=== PATIENT | female | born 1990 | race African-American/Black ===

== ENCOUNTER 2020-06-27 16:19 | Inpatient (IN) | payer OTHER ==
--- NOTE | 2020-06-27 19:21 | HP ---
CIWA Score Nausea/Vomitin-Mild Nausea/No Vomiting Muscle Tremors: 1-None Visible, but [place] Anxiety: 0-No Anxiety, at Ease Agitation: 1-Slight > Activity Paroxysmal Sweats: No Perspiration Orientation: 0-Oriented Tacttile Disturbances: 0-None Auditory Disturbances: 0-None Visual Disturbances: 0-None Headache: 0-None Present CIWA-Ar Total Score: 3 - Admission Criteria OASAS Guidelines: Admission for Medically Managed Detox: Requires at least one of the followin. CIWA greater than 12 2. Seizures within the past 24 hours 3. Delirium tremens within the past 24 hours 4. Hallucinations within the past 24 hours 5. Acute intervention needed for co occurring medical disorder 6. Acute intervention needed for co occurring psychiatric disorder 7. Severe withdrawal that cannot be handled at a lower level of care (continued vomiting, continued diarrhea, abnormal vital signs) requiring intravenous medication and/or fluids 8. Admission ROS [facility] - HPI Allergies/Adverse Reactions: Allergies Allergy/AdvReac Type Severity Reaction Status Date / Time No Known Allergies Allergy Verified 06/27/20 19:16 History of Present Illness: 29 y.o. female requesting detox form alcohol use , claims 1 pint /day since 2 years ago , most recent detox "a few weeks ago " in the [place] , latest use today 10 am, reports tremors if not drinking , denies seizures or blackouts . Current JAYLA 0.107 denies illicits PMHx/PSHX : denies Psych : denies allergies : denies meds : none LMP 06/07/2020 tobacco - denies Exam Limitations: Intoxication - Review of Systems Constitutional: Loss of Appetite EENT: reports: No Symptoms Reported Respiratory: reports: No Symptoms reported Cardiac: reports: No Symptoms Reported GI: reports: Poor Appetite : reports: No Symptoms Reported Musculoskeletal: reports: No Symptoms Reported Integumentary: reports: No Symptoms Reported Neuro: reports: No Symptoms reported Endocrine: reports: No Symptoms Reported Hematology: reports: No Symptoms Reported Psychiatric: reports: Orientated x3, Agitated, other (tearful at times) Patient History - Smoking Cessation Smoking history: Never smoked - Substances abused Alcohol Substance route: Oral Frequency: Daily Amount used: 1 pint Age of first use: 28 Date of last use: 06/27/20 Admission Physical Exam [facility] - Physical General Appearance: Yes: Mild Distress, Intoxicated HEENTM: Yes: EOMI, Hearing grossly Normal, Normocephalic, Normal Voice Respiratory: Yes: Chest Non-Tender, Lungs Clear, Normal Breath Sounds, No Respiratory Distress, No Accessory Muscle Use Neck: Yes: No masses,lesions,Nodules, Trachea in good position Cardiology: Yes: Regular Rhythm, Regular Rate, S1, S2, Tachycardia Abdominal: Yes: Non Tender, Soft Musculoskeletal: Yes: Gait Steady Extremities: Yes: Normal Capillary Refill, Normal Range of Motion, Non-Tender, Tremors Neurological: Yes: Fully Oriented, Alert, Motor Strength 5/5, Depressed Affect Integumentary: Yes: Warm - Diagnostic (1) Alcohol intoxication Current Visit: Yes Status: Acute Qualifiers: Complication of substance-induced condition: uncomplicated Qualified Code(s): F10.920 - Alcohol use, unspecified with intoxication, uncomplicated Inpatient Rehab Admission - Rehab Decision to Admit Inpatient rehab admission?: No
[2020-06-27] MEDS ORDERED: METHOCARBAMOL 500 MG TABLET PO PRN (19:24)
[2020-06-27] MEDS ORDERED: BISMUTH SUBSALICYLATE 524 MG/30 ML UD PO PRN (19:24)
[2020-06-27] MEDS ORDERED: MAGNESIUM HYDROX 2400MG/30ML ORAL SUSPENSION 30 ML CUP PO PRN (19:24)
[2020-06-27] MEDS ORDERED: MENTHOL/PHENOL 1 EACH UD MM PRN (19:24)
[2020-06-27] MEDS ORDERED: IBUPROFEN 400 MG TABLET (FP) PO PRN (19:24)
[2020-06-27] MEDS ORDERED: ACETAMINOPHEN 325 MG TABLET (FP) PO PRN ×2 (19:24)
[2020-06-27] MEDS ORDERED: ONDANSETRON *ODT* 4 MG TABLET SL ONE (19:24)
[2020-06-27] MEDS ORDERED: MAG HYDROX/AL HYDROX/SIMETH 30 ML UNIT-DOSE CUP PO PRN (19:24)
[2020-06-27] MEDS ORDERED: MAGNESIUM CITRATE 300 ML BOTTLE PO PRN (19:24)
[2020-06-27] MEDS ORDERED: chlordiazePOXIDE HCL 10 MG CAPSULE PO PRN (19:25)
[2020-06-27 19:50] VITALS: BMI 20.2
[2020-06-27] MEDS: chlordiazePOXIDE HCL 25 MG CAPSULE PO SCH (21:50)
[2020-06-27] MEDS: THIAMINE HCL 100 MG TABLET (FP) PO SCH (21:50)
[2020-06-27] MEDS: MELATONIN 5 MG TABLETS PO PRN (21:51)
[2020-06-28] MEDS: chlordiazePOXIDE HCL 25 MG CAPSULE PO SCH ×3 (05:48→22:27)
[2020-06-28] MEDS: PRENATAL VITAMINS W/ FOLIC ACID TABLET (FP) PO SCH (09:35)
--- NOTE | 2020-06-28 09:51 | PN ---
S CIWA - CIWA Score Nausea/Vomitin-Mild Nausea/No Vomiting Muscle Tremors: 3 Anxiety: 3 Agitation: 1-Slight > Activity Paroxysmal Sweats: No Perspiration Orientation: 0-Oriented Tacttile Disturbances: 1-Very Mild Itch/Numbness Auditory Disturbances: 0-None Visual Disturbances: 1-Very Mild Sensitivity Headache: 2-Mild CIWA-Ar Total Score: 12 BHS Progress Note (SOAP) Subjective: 29 years old female was admitted on 06/27/20 for alcohol withdrawal sx management treating with librium detox regiment feels tired resting in bed limited conversation with staff bmi 20.3 provide ensure supplement with meals Objective: 06/28/20 09:50 Vital Signs - 24 hr 06/27/20 06/27/20 06/28/20 19:43 20:33 06:28 Temperature 97.6 F 98.1 F 97.1 F L Pulse Rate 83 82 53 L Respiratory 18 16 18 Rate Blood Pressure 139/96 118/83 123/83 O2 Sat by Pulse 100 96 Oximetry (%) Laboratory Tests 06/27/20 19:50 POC Urine HCG, Qual Negative 06/28/20 09:50 lab pending Assessment: 06/28/20 09:50 alcohol withdrawal 06/28/20 09:51 underweight Plan: librium regiment nutrition supplement
[2020-06-28 13:06] LABS: HEMATOCRIT 36.4 % (32.4-45.2); HEMOGLOBIN 12.3 GM/dL (10.7-15.3); MCH 34.9 pg (25.7-33.7); MCHC 33.8 g/dl (32.0-36.0); MEAN CELL VOLUME 103.3 fl (80-96); MEAN PLT VOLUME 9.3 fl (7.5-11.1); PLATELET COUNT 175 K/MM3 (134-434); RBC 3.52 M/mm3 (3.60-5.2); RDW 13.7 % (11.6-15.6); WHITE BLOOD COUNT 3.4 K/mm3 (4.0-10.0)
[2020-06-28 13:12] LABS: ALBUMIN 4.6 g/dl (3.4-5.0); BLOOD UREA NITROGEN 8.1 mg/dL (7-18); CALCIUM 9.9 mg/dL (8.5-10.1); CREATININE 0.8 mg/dL (0.55-1.3); POTASSIUM 3.8 mmol/L (3.5-5.1)
[2020-06-28 13:14] LABS: BILIRUBIN,TOTAL 1.5 mg/dL (0.2-1); TOT PROT 9.1 g/dl (6.4-8.2)
[2020-06-28] MEDS: MELATONIN 5 MG TABLETS PO PRN (22:28)
[2020-06-28] MEDS: THIAMINE HCL 100 MG TABLET (FP) PO SCH (22:28)
[2020-06-29] MEDS ORDERED: chlordiazePOXIDE 5 MG CAPSULE PO SCH (05:00)
[2020-06-29] MEDS: PRENATAL VITAMINS W/ FOLIC ACID TABLET (FP) PO SCH (09:02)
[2020-06-29] MEDS ORDERED: LORazepam 1 MG TABLET PO PRN (10:43)
--- NOTE | 2020-06-29 10:43 | PN ---
S CIWA - CIWA Score Nausea/Vomitin-Mild Nausea/No Vomiting Muscle Tremors: 2 Anxiety: 3 Agitation: 1-Slight > Activity Paroxysmal Sweats: No Perspiration Orientation: 0-Oriented Tacttile Disturbances: 0-None Auditory Disturbances: 0-None Visual Disturbances: 1-Very Mild Sensitivity Headache: 1-Very Mild CIWA-Ar Total Score: 9 S Progress Note (SOAP) Subjective: 29 years old female was admitted on 06/27/20 for alcohol withdrawal sx management treating with librium detox regiment slept better last night less tremor mild anxiety continue ensure nutritional supplement Objective: 06/29/20 10:40 Vital Signs - 24 hr 06/28/20 06/28/20 06/28/20 13:07 16:43 20:36 Temperature 97.1 F L 97.1 F L 97.1 F L Pulse Rate 97 H 78 96 H Respiratory 18 16 16 Rate Blood Pressure 114/81 102/79 129/87 O2 Sat by Pulse 100 100 96 Oximetry (%) 06/29/20 06/29/20 06:07 09:31 Temperature 98.8 F 98.1 F Pulse Rate 103 H 94 H Respiratory 20 18 Rate Blood Pressure 106/76 106/82 O2 Sat by Pulse 100 Oximetry (%) Laboratory Tests 06/27/20 06/27/20 06/28/20 19:50 20:10 08:30 WBC RBC Hgb Hct MCV MCH MCHC RDW Plt Count MPV Sodium Potassium Chloride Carbon Dioxide Anion Gap BUN Creatinine Est GFR (CKD-EPI)AfAm Est GFR (CKD-EPI)NonAf Random Glucose Calcium Total Bilirubin AST ALT Alkaline Phosphatase Total Protein Albumin POC Urine HCG, Qual Negative Syphilis Serology Non-reactive COVID-19 ([facility]) Not detected 06/28/20 06/28/20 08:30 08:30 WBC 3.4 L RBC 3.52 L Hgb 12.3 Hct 36.4 MCV 103.3 H MCH 34.9 H MCHC 33.8 RDW 13.7 Plt Count 175 MPV 9.3 Sodium 132 L Potassium 3.8 Chloride 92 L Carbon Dioxide 34 H Anion Gap 7 L BUN 8.1 Creatinine 0.8 Est GFR (CKD-EPI)AfAm 116.28 Est GFR (CKD-EPI)NonAf 100.33 Random Glucose 74 Calcium 9.9 Total Bilirubin 1.5 H AST 244 H ALT 64 H Alkaline Phosphatase 88 Total Protein 9.1 H Albumin 4.6 POC Urine HCG, Qual Syphilis Serology COVID-19 ([facility]) ast elevation 06/29/20 10:49 discontinue librium begin ativan for alcohol withdrawal discontinue tylenal repeat ast Assessment: 06/29/20 10:51 alcohol withdrawal Plan: ativan regiment
[2020-06-29] MEDS ORDERED: LORazepam 2 MG TABLET PO SCH (11:30)
[2020-06-29] MEDS: LORazepam 0.5 MG TABLET PO SCH ×2 (11:52→18:10)
[2020-06-29] MEDS: MELATONIN 5 MG TABLETS PO PRN (22:34)
[2020-06-29] MEDS: THIAMINE HCL 100 MG TABLET (FP) PO SCH (22:34)
[2020-06-30] MEDS ORDERED: chlordiazePOXIDE HCL 10 MG CAPSULE PO PRN
[2020-06-30] MEDS ORDERED: chlordiazePOXIDE HCL 10 MG CAPSULE PO SCH (05:00)
[2020-06-30] MEDS ORDERED: LORazepam 1 MG TABLET PO SCH (05:00)
[2020-06-30] MEDS: LORazepam 0.5 MG TABLET PO SCH ×2 (05:56→17:20)
[2020-06-30] MEDS: PRENATAL VITAMINS W/ FOLIC ACID TABLET (FP) PO SCH (09:39)
--- NOTE | 2020-06-30 09:42 | PN ---
S CIWA - CIWA Score Nausea/Vomitin-No Nausea/No Vomiting Muscle Tremors: 1-None Visible, but [place] Anxiety: 1-Mildly Anxious Agitation: 1-Slight > Activity Paroxysmal Sweats: 1-Minimal [place] Moist Orientation: 0-Oriented Tacttile Disturbances: 1-Very Mild Itch/Numbness Auditory Disturbances: 0-None Visual Disturbances: 0-None Headache: 1-Very Mild CIWA-Ar Total Score: 6 BHS Progress Note (SOAP) Subjective: 29 years old female was admitted on 06/27/20 for alcohol withdrawal sx management treating with ativan detox regiment feels better today discussing aftercare with staff ms lee prefers to go to [facility] out patient alcohol treatment program for recovery Objective: 06/30/20 09:42 Vital Signs - 24 hr 06/29/20 06/29/20 06/29/20 12:25 17:17 21:09 Temperature 98.8 F 97.3 F L 97.1 F L Pulse Rate 76 92 H 75 Respiratory 16 18 18 Rate Blood Pressure 103/80 107/81 107/87 O2 Sat by Pulse 99 100 Oximetry (%) 06/30/20 06/30/20 06:50 08:44 Temperature 97.1 F L 98.6 F Pulse Rate 96 H 106 H Respiratory 16 16 Rate Blood Pressure 100/78 95/72 O2 Sat by Pulse 100 Oximetry (%) Laboratory Tests 06/27/20 06/27/20 06/28/20 19:50 20:10 08:30 WBC RBC Hgb Hct MCV MCH MCHC RDW Plt Count MPV Sodium Potassium Chloride Carbon Dioxide Anion Gap BUN Creatinine Est GFR (CKD-EPI)AfAm Est GFR (CKD-EPI)NonAf Random Glucose Calcium Total Bilirubin AST ALT Alkaline Phosphatase Total Protein Albumin POC Urine HCG, Qual Negative Syphilis Serology Non-reactive COVID-19 ([facility]) Not detected 06/28/20 06/28/20 08:30 08:30 WBC 3.4 L RBC 3.52 L Hgb 12.3 Hct 36.4 MCV 103.3 H MCH 34.9 H MCHC 33.8 RDW 13.7 Plt Count 175 MPV 9.3 Sodium 132 L Potassium 3.8 Chloride 92 L Carbon Dioxide 34 H Anion Gap 7 L BUN 8.1 Creatinine 0.8 Est GFR (CKD-EPI)AfAm 116.28 Est GFR (CKD-EPI)NonAf 100.33 Random Glucose 74 Calcium 9.9 Total Bilirubin 1.5 H AST 244 H ALT 64 H Alkaline Phosphatase 88 Total Protein 9.1 H Albumin 4.6 POC Urine HCG, Qual Syphilis Serology COVID-19 ([facility]) ast elevation possible related to alcohol consumption repeat ast pending 06/30/20 09:42 Assessment: 06/30/20 09:43 alcohol withdrawal Plan: ativan regiment
[2020-06-30] MEDS: THIAMINE HCL 100 MG TABLET (FP) PO SCH (22:03)
[2020-06-30] MEDS: MELATONIN 5 MG TABLETS PO PRN (22:03)
[2020-07-01] MEDS ORDERED: LORazepam 0.5 MG TABLET PO ONE (05:00)
[2020-07-01] MEDS ORDERED: chlordiazePOXIDE HCL 10 MG CAPSULE PO ONE (05:00)
[2020-07-01 07:08] VITALS: BP 102/71; PULSE 87; TEMP 97.1
[2020-07-01] MEDS: PRENATAL VITAMINS W/ FOLIC ACID TABLET (FP) PO SCH (09:05)
--- NOTE | 2020-07-01 10:27 | DS ---
[facility] Detox Discharge Summary Admission Date: 06/27/20 Discharge Date: 07/01/20 - History Present History: Alcohol Dependence Additional Comments: Pt is medically cleared and discharged today. Pt completed the detox protocol. Pt is encouraged to follow-up with an outpatient CD program and also to follow- up with her pmd which she verbalized understanding. Pt is AOX3, in no acute respiratory distress, Full ROM, and ambulatory. Pertinent Past History: h/o alcohol use disorder. - Physical Exam Results Vital Signs: Vital Signs Temperature 97.1 F L 07/01/20 07:07 Pulse Rate 87 07/01/20 07:07 Respiratory Rate 18 07/01/20 07:07 Blood Pressure 102/71 07/01/20 07:07 O2 Sat by Pulse Oximetry (%) 100 07/01/20 07:07 Vital Signs 07/01/20 07:07 Temperature 97.1 F L Pulse Rate 87 Respiratory 18 Rate Blood Pressure 102/71 O2 Sat by Pulse 100 Oximetry (%) Laboratory Last Values WBC 3.4 K/mm3 (4.0-10.0) L 06/28/20 08:30 RBC 3.52 M/mm3 (3.60-5.2) L 06/28/20 08:30 Hgb 12.3 GM/dL (10.7-15.3) 06/28/20 08:30 Hct 36.4 % (32.4-45.2) 06/28/20 08:30 MCV 103.3 fl (80-96) H 06/28/20 08:30 MCH 34.9 pg (25.7-33.7) H 06/28/20 08:30 MCHC 33.8 g/dl (32.0-36.0) 06/28/20 08:30 RDW 13.7 % (11.6-15.6) 06/28/20 08:30 Plt Count 175 K/MM3 (134-434) 06/28/20 08:30 MPV 9.3 fl (7.5-11.1) 06/28/20 08:30 Sodium 132 mmol/L (136-145) L 06/28/20 08:30 Potassium 3.8 mmol/L (3.5-5.1) 06/28/20 08:30 Chloride 92 mmol/L (98-107) L 06/28/20 08:30 Carbon Dioxide 34 mmol/L (21-32) H 06/28/20 08:30 Anion Gap 7 MMOL/L (8-16) L 06/28/20 08:30 BUN 8.1 mg/dL (7-18) 06/28/20 08:30 Creatinine 0.8 mg/dL (0.55-1.3) 06/28/20 08:30 Est GFR (CKD-EPI)AfAm 116.28 06/28/20 08:30 Est GFR (CKD-EPI)NonAf 100.33 06/28/20 08:30 Random Glucose 74 mg/dL (74-106) 06/28/20 08:30 Calcium 9.9 mg/dL (8.5-10.1) 06/28/20 08:30 Total Bilirubin 1.5 mg/dL (0.2-1) H 06/28/20 08:30 AST 100 U/L (15-37) H 06/30/20 08:00 ALT 64 U/L (13-61) H 06/28/20 08:30 Alkaline Phosphatase 88 U/L (45-117) 06/28/20 08:30 Total Protein 9.1 g/dl (6.4-8.2) H 06/28/20 08:30 Albumin 4.6 g/dl (3.4-5.0) 06/28/20 08:30 POC Urine HCG, Qual Negative 06/27/20 19:50 Syphilis Serology Non-reactive (NONREACTIVE) 06/28/20 08:30 COVID-19 ([facility]) Not detected (Not Detected) 06/27/20 20:10 Labs noted. Pertinent Admission Physical Exam Findings: withdrawal symptoms. - Treatment Hospital Course: Detox Protocol Followed, Detoxed Safely, Responded well, Discharged Condition Good - Medication Discharge Medications: Ambulatory Orders NK [No Known Home Medication] 06/27/20 - Diagnosis (1) Alcohol use disorder Current Visit: Yes Status: Chronic (2) Alcohol intoxication Current Visit: Yes Status: Acute Qualifiers: Complication of substance-induced condition: uncomplicated Qualified Code(s): F10.920 - Alcohol use, unspecified with intoxication, uncomplicated - AMA Did Patient Leave Against Medical Advice: No
== END 2020-07-01 08:32 | disposition home or self-care (01) | DRG 775 ==
LOC: YASAS 16:19 → Y3N 19:38
PROVIDERS: ADMIT Allergy & Immunology; ATTEND Allergy & Immunology
PROC: HZ2ZZZZ Detoxification Services for Substance Abuse Treatment (ICD-10-PCS; principal; 2020-06-27)
DX: F10.230 Alcohol dependence with withdrawal, uncomplicated (principal); F10.220 Alcohol dependence with intoxication, uncomplicated; R74.0 Nonspecific elevation of levels of transaminase and lactic acid dehydrogenase [LDH]; R63.6 Underweight; Z68.20 Body mass index [BMI] 20.0-20.9, adult
CPT/HCPCS: 36415; 80053; 81025; 84450; 85027; 86780; Q0162; U0003

== ENCOUNTER 2020-07-28 14:31 | Inpatient (IN) | payer OTHER ==
--- NOTE | 2020-07-28 14:45 | BHS.RME ---
Substance Use & Tx History - Substance Use History Alcohol Substance amount: one pint [place]ena Frequency of use: Daily Substance route: Oral Date of Last Use: 07/28/20 - Last Treatment Date of last treatment: jun 27 to , detox Treatment type: Substance Use Disorder (ROSE) Where was last treatment: Detox Physical/Psych/Mental Status - Behavior General Behavior: Increased activity (restlessness, agitation) Eye Contact: Normal - Cooperativeness Cooperativeness: Cooperative - Thinking Thought Processes: Tight Thought content: Future oriented - Physical Health Problems Is patient presently having any pain?: No Does patient presently have any injuries (include location): No Does patient currently have a fever: No CIWA Nausea/Vomitin-Mild Nausea/No Vomiting Muscle Tremors: 3 Anxiety: 2 Agitation: 2 Paroxysmal Sweats: No Perspiration Orientation: 0-Oriented Tacttile Disturbances: 0-None Auditory Disturbances: 0-None Visual Disturbances: 0-None Headache: 0-None Present CIWA-Ar Total Score: 8
[2020-07-28 15:15] VITALS: BMI 21.4
--- NOTE | 2020-07-28 15:29 | HP ---
CIWA Score Nausea/Vomitin-Mild Nausea/No Vomiting Muscle Tremors: 3 Anxiety: 2 Agitation: 2 Paroxysmal Sweats: No Perspiration Orientation: 0-Oriented Tacttile Disturbances: 0-None Auditory Disturbances: 0-None Visual Disturbances: 0-None Headache: 0-None Present CIWA-Ar Total Score: 8 - Admission Criteria OASAS Guidelines: Admission for Medically Managed Detox: Requires at least one of the followin. CIWA greater than 12 2. Seizures within the past 24 hours 3. Delirium tremens within the past 24 hours 4. Hallucinations within the past 24 hours 5. Acute intervention needed for co occurring medical disorder 6. Acute intervention needed for co occurring psychiatric disorder 7. Severe withdrawal that cannot be handled at a lower level of care (continued vomiting, continued diarrhea, abnormal vital signs) requiring intravenous medication and/or fluids 8. Admitting History and Physical - Admission Chief Complaint: Ms. Wing is a 29 yo woman who presents to [facility] requesting detox from alcohol. History of Present Illness: Ms. Wing is a 29 yo woman who presents to [facility] requesting detox from alcohol. She completed detox here in June and relapsed immediately. PMH/PSH/Psych/Legal: none SOC: homeless Substance Use History Alcohol Substance amount: one pint jhon Frequency of use: Daily Substance route: Oral Date of Last Use: 07/28/20 - Last Treatment Date of last treatment: jun 27 to , detox Treatment type: Substance Use Disorder (ROSE) Where was last treatment: Detox Pt meets admission criteria due to: current level of intoxication precludes seeing full extent of withdrawal. Additionally, poor recovery environment, high risk relapse. - Past Medical History ...: No - Smoking History Smoking history: Never smoked Have you smoked in the past 12 months: No Admission ROS [facility] Allergies/Adverse Reactions: Allergies Allergy/AdvReac Type Severity Reaction Status Date / Time No Known Allergies Allergy Verified 07/28/20 15:10 Exam Limitations: No Limitations - Ebola screening Have you traveled outside of the country in the last 21 days: No Have you been sick,other than usual withdrawal symptoms: No Do you have a fever: No - Review of Systems Constitutional: No Symptoms Reported EENT: reports: No Symptoms Reported Respiratory: reports: No Symptoms reported Cardiac: reports: No Symptoms Reported GI: reports: Nausea Musculoskeletal: reports: No Symptoms Reported Integumentary: reports: No Symptoms Reported Neuro: reports: No Symptoms reported Endocrine: reports: No Symptoms Reported Hematology: reports: No Symptoms Reported Psychiatric: reports: Anxious Patient History - Patient Medical History Hx Asthma: No Hx Chronic Obstructive Pulmonary Disease (COPD): No Hx Cardiac Disorders: No Hx Hypertension: No Hx Seizures: No Hx Diabetes: No Hx Gastrointestinal Disorders: No Hx Genitourinary Disorders: No Hx Sexually Transmitted Disorders: No Hx Renal Disease (ESRD): No Hx Depression: No Hx Suicide Attempt: No Hx Schizophrenia: No - Patient Surgical History Past Surgical History: No Hx Neurologic Surgery: No Hx Cataract Extraction: No Hx Cardiac Surgery: No Hx Lung Surgery: No Hx Breast Surgery: No Hx Breast Biopsy: No Hx Abdominal Surgery: No Hx Appendectomy: No Hx Cholecystectomy: No Hx Genitourinary Surgery: No Hx Section: No Hx Orthopedic Surgery: No Anesthesia Reaction: No - PPD History Previous Implant?: Yes Documented Results: Negative w/proof Date: 06/29/20 - Reproductive History Patient : No - Smoking Cessation Smoking history: Never smoked Have you smoked in the past 12 months: No Cigars Per Day: 0 Hx Chewing Tobacco Use: No Initiated information on smoking cessation: No - Substances abused Alcohol Substance route: Oral Frequency: Daily Amount used: 1 PINT OF JHON Age of first use: 15 Date of last use: 07/28/20 Admission Physical Exam BHS - Vital Signs Vital Signs: Vital Signs - 24 hr 07/28/20 15:10 Temperature 97.3 F L Pulse Rate 83 Respiratory 18 Rate Blood Pressure 110/76 - Physical General Appearance: Yes: No Apparent Distress, Nourished, Intoxicated, Anxious HEENTM: Yes: EOMI, Hearing grossly Normal, Normocephalic, Normal Voice Respiratory: Yes: Lungs Clear, No Respiratory Distress, No Accessory Muscle Use Neck: Yes: Within Normal Limits, Supple Breast: Yes: Breast Exam Deferred Cardiology: Yes: Regular Rhythm, Regular Rate Abdominal: Yes: Normal Bowel Sounds, Non Tender, Flat, Soft Genitourinary: Yes: Other (deferred) Back: Yes: Normal Inspection Musculoskeletal: Yes: Gait Steady Extremities: Yes: Normal Inspection, Non-Tender Neurological: Yes: Alert, Normal Response Integumentary: Yes: Normal Color, Dry, Warm, Other (1" scar left side of forehead) - Diagnostic (1) Homeless Current Visit: Yes Status: Acute Comment: 1. Pt to meet with counselor to discuss aftercare plan (2) Alcohol intoxication Current Visit: No Status: Acute Qualifiers: Comment: 1. Admit detox 2. Last visit, elevated LFTs, will use Ativan protocol 3. Comfort medication 4. Substance use education 5. routine labs Cleared for Admission S - Detox or Rehab [facility] Level of Care: Medically Managed Detox Regimen/Protocol: Ativan, Librium Breathalyzer - Breathalyzer Breathalyzer: 0.300 Urine Drug Screen - Test Device Lot number: [id number] Expiration date: 02/16/22 - Control Is test valid?: Yes - Results Drug screen NEGATIVE: Yes Inpatient Rehab Admission - Rehab Decision to Admit Inpatient rehab admission?: No
[2020-07-28] MEDS ORDERED: METHOCARBAMOL 500 MG TABLET PO PRN (15:31)
[2020-07-28] MEDS ORDERED: MAGNESIUM HYDROX 2400MG/30ML ORAL SUSPENSION 30 ML CUP PO PRN (15:31)
[2020-07-28] MEDS ORDERED: LORazepam 1 MG TABLET PO PRN (15:31)
[2020-07-28] MEDS ORDERED: MAGNESIUM CITRATE 300 ML BOTTLE PO PRN (15:31)
[2020-07-28] MEDS ORDERED: ACETAMINOPHEN 325 MG TABLET (FP) PO PRN ×2 (15:31)
[2020-07-28] MEDS ORDERED: BISMUTH SUBSALICYLATE 262 MG/15 ML BTL PO PRN (15:31)
[2020-07-28] MEDS ORDERED: MENTHOL/PHENOL 1 EACH UD MM PRN (15:31)
[2020-07-28] MEDS ORDERED: ONDANSETRON *ODT* 4 MG TABLET SL PRN (15:31)
[2020-07-28] MEDS ORDERED: MAG HYDROX/AL HYDROX/SIMETH 30 ML UNIT-DOSE CUP PO PRN (15:31)
[2020-07-28] MEDS ORDERED: IBUPROFEN 400 MG TABLET (FP) PO PRN (15:31)
[2020-07-28] MEDS: LORazepam 2 MG TABLET PO SCH ×2 (18:02→22:47)
[2020-07-28] MEDS: hydrOXYzine PAMOATE 25 MG CAPSULE (FP) PO SCH ×2 (18:02→22:47)
[2020-07-28] MEDS: THIAMINE HCL 100 MG TABLET (FP) PO SCH (22:47)
[2020-07-28] MEDS: MELATONIN 5 MG TABLETS PO SCH (22:47)
[2020-07-29] MEDS: LORazepam 2 MG TABLET PO SCH ×4 (06:44→22:15)
[2020-07-29] MEDS: hydrOXYzine PAMOATE 25 MG CAPSULE (FP) PO SCH ×5 (06:44→22:15)
--- NOTE | 2020-07-29 09:32 | PN ---
S CIWA - CIWA Score Nausea/Vomitin-No Nausea/No Vomiting Muscle Tremors: None Anxiety: 2 Agitation: 0-Normal Activity Paroxysmal Sweats: No Perspiration Orientation: 0-Oriented Tacttile Disturbances: 0-None Auditory Disturbances: 0-None Visual Disturbances: 0-None Headache: 0-None Present CIWA-Ar Total Score: 2 BHS Progress Note (SOAP) Subjective: Patient was examined by bedside. Patient was eating breakfast and had complaints of anxiety. Pt was stable and feeling well otherwise. Objective: 07/29/20 09:30 PE: General: No acute distress, alert and awake MSK: gait normal, pelvis stable, normal range of motion Skin: No lesions or abrasions skin color normal. MS: responds appropriately to questions, oriented x3, pleasant demeanor Last Vital Signs Temp Pulse Resp BP Pulse Ox 97.5 F L 100 H 16 109/79 97 07/29/20 08:32 07/29/20 08:32 07/29/20 08:32 07/29/20 08:32 07/29/20 08:32 Current Medications Generic Name Dose Route Start Last Admin Trade Name Freq PRN Reason Stop Dose Admin Acetaminophen 650 mg 07/28/20 15:31 Tylenol - PO Q6H PRN PAIN LEVEL 4 - 6 Acetaminophen 650 mg 07/28/20 15:31 Tylenol - PO Q6H PRN FEVER Al Hydroxide/Mg Hydroxide 30 ml 07/28/20 15:31 Mylanta Oral Suspension - PO Q6H PRN DYSPEPSIA Bismuth Subsalicylate 30 ml 07/28/20 15:31 Pepto-Bismol Liquid - PO Q1H PRN DIARRHEA Eucalyptus/Menthol/Phenol/Sorbitol 1 each 07/28/20 15:31 Cepastat Lozenge - MM 08/03/20 15:32 Q4H PRN SORE THROAT Hydroxyzine Pamoate 25 mg 07/28/20 18:00 07/29/20 06:44 Vistaril - PO 08/03/20 15:32 25 mg Q4HWA GURJIT Administration Ibuprofen 400 mg 07/28/20 15:31 Motrin - PO Q6H PRN PAIN LEVEL 1 - 3 Lorazepam 1 mg 07/30/20 05:00 Ativan - PO 07/30/20 23:01 0500,1100,1700,2300 GURJIT Lorazepam 1 mg 07/28/20 15:31 Ativan - PO 07/30/20 23:59 Q4H PRN Symptoms of Withdrawal Lorazepam 2 mg 07/28/20 17:00 07/29/20 06:44 Ativan PO 07/29/20 23:01 2 mg 0500,1100,1700,2300 GURJIT Administration Lorazepam 0.5 mg 07/31/20 05:00 Ativan - PO 07/31/20 23:01 Q6H GURJIT Lorazepam 0.5 mg 07/31/20 00:00 Ativan - PO 08/01/20 00:00 Q4H PRN Symptoms of Withdrawal Lorazepam 0.5 mg 08/01/20 05:00 Ativan - PO 08/01/20 05:01 ONCE ONE Magnesium Citrate 300 ml 07/28/20 15:31 Citroma - PO Q48H PRN CONSTIPATION Magnesium Hydroxide 30 ml 07/28/20 15:31 Milk Of Magnesia - PO PRN PRN CONSTIPATION Melatonin 5 mg 07/28/20 22:00 07/28/20 22:47 Melatonin PO 5 mg HS GURJIT Administration Methocarbamol 500 mg 07/28/20 15:31 Robaxin - PO 08/03/20 15:32 Q6H PRN MUSCLE SPASMS Ondansetron HCl 4 mg 07/28/20 15:31 Zofran Odt - SL Q8H PRN Nausea/Vomiting Multivit/Folic Acid/Iron 1 tab 07/29/20 10:00 Vitamins (Sjr) - PO DAILY GURJIT Thiamine HCl 100 mg 07/28/20 22:00 07/28/20 22:47 Vitamin B1 - PO 100 mg HS GURJIT Administration Assessment: 07/29/20 09:31 Assessment: Patient is in detox due to alcohol, continue on librium protocol, currently day 1 Plan: Plan: Continue librium protocol
[2020-07-29] MEDS: PRENATAL VITAMINS W/ FOLIC ACID TABLET (FP) PO SCH (10:28)
[2020-07-29 10:40] LABS: HEMATOCRIT 31.8 % (32.4-45.2); HEMOGLOBIN 10.3 GM/dL (10.7-15.3); MCH 32.7 pg (25.7-33.7); MCHC 32.5 g/dl (32.0-36.0); MEAN CELL VOLUME 100.5 fl (80-96); MEAN PLT VOLUME 8.7 fl (7.5-11.1); PLATELET COUNT 155 K/MM3 (134-434); RBC 3.17 M/mm3 (3.60-5.2); RDW 13.3 % (11.6-15.6)
[2020-07-29 10:58] LABS: ALBUMIN 3.4 g/dl (3.4-5.0); BILIRUBIN,TOTAL 1.1 mg/dL (0.2-1); CALCIUM 8.5 mg/dL (8.5-10.1); CREATININE 0.6 mg/dL (0.55-1.3); POTASSIUM 3.7 mmol/L (3.5-5.1); TOT PROT 7.2 g/dl (6.4-8.2)
[2020-07-29] MEDS: MELATONIN 5 MG TABLETS PO SCH (22:15)
[2020-07-29] MEDS: THIAMINE HCL 100 MG TABLET (FP) PO SCH (22:15)
[2020-07-30] MEDS: LORazepam 1 MG TABLET PO SCH ×4 (05:51→22:31)
[2020-07-30] MEDS: hydrOXYzine PAMOATE 25 MG CAPSULE (FP) PO SCH ×5 (05:51→22:31)
[2020-07-30] MEDS: PRENATAL VITAMINS W/ FOLIC ACID TABLET (FP) PO SCH (11:18)
--- NOTE | 2020-07-30 11:53 | PN ---
[facility] CIWA - CIWA Score Nausea/Vomitin-No Nausea/No Vomiting Muscle Tremors: None Anxiety: 2 Agitation: 0-Normal Activity Paroxysmal Sweats: 2 Orientation: 0-Oriented Tacttile Disturbances: 0-None Auditory Disturbances: 0-None Visual Disturbances: 0-None Headache: 0-None Present CIWA-Ar Total Score: 4 S Progress Note (SOAP) Subjective: c/o mild withdrawal symptoms. Objective: 07/30/20 11:52 Vital Signs 07/30/20 07/30/20 06:38 08:34 Temperature 97.7 F 97.3 F L Pulse Rate 89 73 Respiratory 18 18 Rate Blood Pressure 120/91 125/67 O2 Sat by Pulse 98 98 Oximetry (%) Laboratory Last Values WBC 3.0 K/mm3 (4.0-10.0) L 07/29/20 08:00 RBC 3.17 M/mm3 (3.60-5.2) L 07/29/20 08:00 Hgb 10.3 GM/dL (10.7-15.3) L 07/29/20 08:00 Hct 31.8 % (32.4-45.2) L 07/29/20 08:00 MCV 100.5 fl (80-96) H 07/29/20 08:00 MCH 32.7 pg (25.7-33.7) 07/29/20 08:00 MCHC 32.5 g/dl (32.0-36.0) 07/29/20 08:00 RDW 13.3 % (11.6-15.6) 07/29/20 08:00 Plt Count 155 K/MM3 (134-434) 07/29/20 08:00 MPV 8.7 fl (7.5-11.1) 07/29/20 08:00 Sodium 139 mmol/L (136-145) 07/29/20 08:00 Potassium 3.7 mmol/L (3.5-5.1) 07/29/20 08:00 Chloride 104 mmol/L (98-107) 07/29/20 08:00 Carbon Dioxide 27 mmol/L (21-32) 07/29/20 08:00 Anion Gap 9 MMOL/L (8-16) 07/29/20 08:00 BUN 5.0 mg/dL (7-18) L 07/29/20 08:00 Creatinine 0.6 mg/dL (0.55-1.3) 07/29/20 08:00 Est GFR (CKD-EPI)AfAm 143.77 07/29/20 08:00 Est GFR (CKD-EPI)NonAf 124.04 07/29/20 08:00 Random Glucose 109 mg/dL (74-106) H 07/29/20 08:00 Calcium 8.5 mg/dL (8.5-10.1) 07/29/20 08:00 Total Bilirubin 1.1 mg/dL (0.2-1) H 07/29/20 08:00 AST 72 U/L (15-37) H 07/29/20 08:00 ALT 26 U/L (13-61) 07/29/20 08:00 Alkaline Phosphatase 54 U/L (45-117) 07/29/20 08:00 Total Protein 7.2 g/dl (6.4-8.2) 07/29/20 08:00 Albumin 3.4 g/dl (3.4-5.0) 07/29/20 08:00 POC Urine HCG, Qual Negative 07/28/20 15:19 Syphilis Serology Non-reactive (NONREACTIVE) 07/29/20 08:00 COVID-19 ([facility]) Not detected (Not Detected) 07/28/20 15:20 HIV Ag/Ab Combo Qual Negative (NEGATIVE) 07/29/20 08:00 Labs noted. Assessment: 07/30/20 11:53 AOX3, in no acute respiratory distress. Full ROM, ambulating in the unit. Mild Withdrawal symptoms. Plan: continue detox.
[2020-07-30] MEDS: MELATONIN 5 MG TABLETS PO SCH (22:31)
[2020-07-30] MEDS: THIAMINE HCL 100 MG TABLET (FP) PO SCH (22:31)
[2020-07-31] MEDS ORDERED: LORazepam 0.5 MG TABLET PO PRN
[2020-07-31] MEDS: hydrOXYzine PAMOATE 25 MG CAPSULE (FP) PO SCH ×5 (05:44→22:17)
[2020-07-31] MEDS: LORazepam 0.5 MG TABLET PO SCH ×4 (05:44→22:18)
--- NOTE | 2020-07-31 09:47 | PN ---
S CIWA - CIWA Score Nausea/Vomitin-No Nausea/No Vomiting Muscle Tremors: 1-None Visible, but [place] Anxiety: 0-No Anxiety, at Ease Agitation: 0-Normal Activity Paroxysmal Sweats: No Perspiration Orientation: 0-Oriented Tacttile Disturbances: 0-None Auditory Disturbances: 0-None Visual Disturbances: 1-Very Mild Sensitivity Headache: 0-None Present CIWA-Ar Total Score: 2 B[facility] Progress Note (SOAP) Subjective: 29 years old female was admitted on 07/28/20 for alcohol withdrawal sx management treating with ativan detox regiment bmi 21.5 ensure 120 ml po tid with meals feel anxious about discharge tomorrow that she wants to [facility] preference [place] is ok for aftercare ms lee states that she is tired to be homeless health teaching on nutrition and risks of alcohol abuse Objective: 07/31/20 09:50 Vital Signs - 24 hr 07/30/20 07/30/20 07/30/20 13:31 16:52 20:38 Temperature 97.4 F L 97.5 F L 97.1 F L Pulse Rate 85 108 H 79 Respiratory 18 18 18 Rate Blood Pressure 112/80 107/76 113/81 O2 Sat by Pulse 100 100 Oximetry (%) 07/31/20 07/31/20 06:33 08:55 Temperature 97.5 F L 97.5 F L Pulse Rate 74 87 Respiratory 18 18 Rate Blood Pressure 119/87 106/73 O2 Sat by Pulse 100 100 Oximetry (%) Laboratory Tests 07/28/20 07/28/20 07/29/20 15:19 15:20 08:00 WBC RBC Hgb Hct MCV MCH MCHC RDW Plt Count MPV Sodium Potassium Chloride Carbon Dioxide Anion Gap BUN Creatinine Est GFR (CKD-EPI)AfAm Est GFR (CKD-EPI)NonAf Random Glucose Calcium Total Bilirubin AST ALT Alkaline Phosphatase Total Protein Albumin POC Urine HCG, Qual Negative Syphilis Serology COVID-19 ([facility]) Not detected HIV Ag/Ab Combo Qual Negative 07/29/20 07/29/20 07/29/20 08:00 08:00 08:00 WBC 3.0 L RBC 3.17 L Hgb 10.3 L Hct 31.8 L MCV 100.5 H MCH 32.7 MCHC 32.5 RDW 13.3 Plt Count 155 MPV 8.7 Sodium 139 Potassium 3.7 Chloride 104 Carbon Dioxide 27 Anion Gap 9 BUN 5.0 L Creatinine 0.6 Est GFR (CKD-EPI)AfAm 143.77 Est GFR (CKD-EPI)NonAf 124.04 Random Glucose 109 H Calcium 8.5 Total Bilirubin 1.1 H AST 72 H ALT 26 Alkaline Phosphatase 54 Total Protein 7.2 Albumin 3.4 POC Urine HCG, Qual Syphilis Serology Non-reactive COVID-19 ([facility]) HIV Ag/Ab Combo Qual low wbc Assessment: 07/31/20 09:53 alcohol withdrawal Plan: ativan regiment
[2020-07-31] MEDS: PRENATAL VITAMINS W/ FOLIC ACID TABLET (FP) PO SCH (10:19)
[2020-07-31] MEDS: MELATONIN 5 MG TABLETS PO SCH (22:17)
[2020-07-31] MEDS: THIAMINE HCL 100 MG TABLET (FP) PO SCH (22:18)
[2020-08-01] MEDS ORDERED: LORazepam 0.5 MG TABLET PO ONE (05:00)
[2020-08-01] MEDS: hydrOXYzine PAMOATE 25 MG CAPSULE (FP) PO SCH ×2 (05:10→09:05)
[2020-08-01] MEDS: PRENATAL VITAMINS W/ FOLIC ACID TABLET (FP) PO SCH (09:05)
[2020-08-01 09:23] VITALS: BP 111/77; PULSE 103; TEMP 97.3
--- NOTE | 2020-08-01 10:30 | DS ---
[facility] Detox Discharge Summary Admission Date: 07/28/20 Discharge Date: 08/01/20 - History Present History: Alcohol Dependence Additional Comments: 29 years old female was admitted on 07/28/20 for alcohol withdrawal sx management treated with ativan detox regiment ms lee has completed the ativan regimen and is tolerated well General Appearance: Yes: No Apparent Distress, Nourished, not Intoxicated, mild Anxious HEENTM: Yes: EOMI, Hearing grossly Normal, Normocephalic, Normal Voice Respiratory: Yes: Lungs Clear, No Respiratory Distress, No Accessory Muscle Use Neck: Yes: Within Normal Limits, Supple Breast: Yes: Breast Exam Deferred Cardiology: Yes: Regular Rhythm, Regular Rate Abdominal: Yes: Normal Bowel Sounds, Non Tender, Flat, Soft Genitourinary: Yes: Other (deferred) Back: Yes: Normal Inspection Musculoskeletal: Yes: Gait Steady Extremities: Yes: Normal Inspection, Non-Tender Neurological: Yes: Alert, Normal Response Integumentary: Yes: Normal Color, Dry, Warm, Other (1" scar left side of forehead) Pertinent Past History: time for discharge 34 minutes - Physical Exam Results Vital Signs: Vital Signs Temperature 97.3 F L 08/01/20 08:58 Pulse Rate 103 H 08/01/20 08:58 Respiratory Rate 16 08/01/20 08:58 Blood Pressure 111/77 08/01/20 08:58 O2 Sat by Pulse Oximetry (%) 99 08/01/20 05:08 Pertinent Admission Physical Exam Findings: alcohol withdrawal Vital Signs - 24 hr 07/31/20 07/31/20 07/31/20 13:46 17:05 20:33 Temperature 97.3 F L 98.2 F 97.3 F L Pulse Rate 109 H 71 83 Respiratory 18 18 16 Rate Blood Pressure 106/81 116/81 106/73 O2 Sat by Pulse 100 100 Oximetry (%) 08/01/20 08/01/20 05:08 08:58 Temperature 99.5 F 97.3 F L Pulse Rate 66 103 H Respiratory 18 16 Rate Blood Pressure 110/76 111/77 O2 Sat by Pulse 99 Oximetry (%) Laboratory Tests 07/28/20 07/28/20 07/29/20 15:19 15:20 08:00 WBC RBC Hgb Hct MCV MCH MCHC RDW Plt Count MPV Sodium Potassium Chloride Carbon Dioxide Anion Gap BUN Creatinine Est GFR (CKD-EPI)AfAm Est GFR (CKD-EPI)NonAf Random Glucose Calcium Total Bilirubin AST ALT Alkaline Phosphatase Total Protein Albumin POC Urine HCG, Qual Negative Syphilis Serology COVID-19 ([facility]) Not detected HIV Ag/Ab Combo Qual Negative 07/29/20 07/29/20 07/29/20 08:00 08:00 08:00 WBC 3.0 L RBC 3.17 L Hgb 10.3 L Hct 31.8 L MCV 100.5 H MCH 32.7 MCHC 32.5 RDW 13.3 Plt Count 155 MPV 8.7 Sodium 139 Potassium 3.7 Chloride 104 Carbon Dioxide 27 Anion Gap 9 BUN 5.0 L Creatinine 0.6 Est GFR (CKD-EPI)AfAm 143.77 Est GFR (CKD-EPI)NonAf 124.04 Random Glucose 109 H Calcium 8.5 Total Bilirubin 1.1 H AST 72 H ALT 26 Alkaline Phosphatase 54 Total Protein 7.2 Albumin 3.4 POC Urine HCG, Qual Syphilis Serology Non-reactive COVID-19 ([facility]) HIV Ag/Ab Combo Qual lab noted ms lee will follow up with [facility] for low wbc and ast elevation - Treatment Hospital Course: Detox Protocol Followed, Detoxed Safely, Responded well, Discharged Condition Good, Rehab Referral Accepted Patient has Accepted a Rehab Referral to: [facility] - Medication Discharge Medications: Ambulatory Orders NK [No Known Home Medication] 06/27/20 - Diagnosis (1) Substance induced mood disorder Current Visit: Yes Status: Suspected (2) Alcohol use disorder Current Visit: Yes Status: Acute - AMA Did Patient Leave Against Medical Advice: No CIWA Score - CIWA Score Nausea/Vomitin-No Nausea/No Vomiting Muscle Tremors: 1-None Visible, but [place] Anxiety: 0-No Anxiety, at Ease Agitation: 0-Normal Activity Paroxysmal Sweats: No Perspiration Orientation: 0-Oriented Tacttile Disturbances: 0-None Auditory Disturbances: 0-None Visual Disturbances: 0-None Headache: 0-None Present CIWA-Ar Total Score: 1
== END 2020-08-01 09:24 | disposition home or self-care (01) | DRG 775 ==
LOC: YASAS 14:31 → Y3N 15:10
PROVIDERS: ADMIT Allergy & Immunology; ATTEND Allergy & Immunology
PROC: HZ2ZZZZ Detoxification Services for Substance Abuse Treatment (ICD-10-PCS; principal; 2020-07-28)
DX: F10.230 Alcohol dependence with withdrawal, uncomplicated (principal); F10.220 Alcohol dependence with intoxication, uncomplicated; F19.24 Other psychoactive substance dependence with psychoactive substance-induced mood disorder; D72.819 Decreased white blood cell count, unspecified; D59.0 Drug-induced autoimmune hemolytic anemia; R74.0 Nonspecific elevation of levels of transaminase and lactic acid dehydrogenase [LDH]
CPT/HCPCS: 36415; 80053; 81025; 85027; 86780; 87389; U0003

== ENCOUNTER 2020-12-14 17:09 | Inpatient (IN) | payer OTHER ==
[2020-12-14] MEDS ORDERED: IBUPROFEN 400 MG TABLET (FP) PO PRN (21:04)
[2020-12-14] MEDS ORDERED: MENTHOL/PHENOL 1 EACH UD MM PRN (21:04)
[2020-12-14] MEDS ORDERED: BISMUTH SUBSALICYLATE 524 MG/30 ML UD PO PRN (21:04)
[2020-12-14] MEDS ORDERED: MAGNESIUM HYDROX 2400MG/30ML ORAL SUSPENSION 30 ML CUP PO PRN (21:04)
[2020-12-14] MEDS ORDERED: chlordiazePOXIDE HCL 25 MG CAPSULE PO PRN (21:04)
[2020-12-14] MEDS ORDERED: MAG HYDROX/AL HYDROX/SIMETH 30 ML UNIT-DOSE CUP PO PRN (21:04)
[2020-12-14] MEDS ORDERED: MAGNESIUM CITRATE 300 ML BOTTLE PO PRN (21:04)
[2020-12-14] MEDS ORDERED: ONDANSETRON *ODT* 4 MG TABLET SL PRN (21:04)
[2020-12-14] MEDS ORDERED: ACETAMINOPHEN 325 MG TABLET (FP) PO PRN ×2 (21:04)
[2020-12-14] MEDS ORDERED: METHOCARBAMOL 500 MG TABLET PO PRN (21:04)
[2020-12-14] MEDS: MELATONIN 5 MG TABLETS PO SCH (22:14)
[2020-12-14] MEDS: THIAMINE HCL 100 MG TABLET (FP) PO SCH (22:14)
[2020-12-14] MEDS: chlordiazePOXIDE HCL 25 MG CAPSULE PO SCH (22:14)
[2020-12-15] MEDS: chlordiazePOXIDE HCL 25 MG CAPSULE PO SCH ×2 (05:35→10:17)
[2020-12-15] MEDS: PRENATAL VITAMINS W/ FOLIC ACID TABLET (FP) PO SCH (10:16)
[2020-12-15 12:29] LABS: HEMATOCRIT 32.1 % (32.4-45.2); MCH 34.4 pg (25.7-33.7); MCHC 34.1 g/dl (32.0-36.0); MEAN PLT VOLUME 8.7 fl (7.5-11.1); PLATELET COUNT 115 K/MM3 (134-434); RBC 3.18 M/mm3 (3.60-5.2); RDW 14.4 % (11.6-15.6); WHITE BLOOD COUNT 2.3 K/mm3 (4.0-10.0)
[2020-12-15 12:30] LABS: POTASSIUM 3.7 mmol/L (3.5-5.1)
[2020-12-15 12:38] LABS: CALCIUM 8.9 mg/dL (8.5-10.1)
[2020-12-15 12:39] LABS: ALBUMIN 3.8 g/dl (3.4-5.0); BLOOD UREA NITROGEN 5.8 mg/dL (7-18)
[2020-12-15 12:42] LABS: CREATININE 0.6 mg/dL (0.55-1.3)
[2020-12-15 12:44] LABS: TOT PROT 7.8 g/dl (6.4-8.2)
[2020-12-15] MEDS ORDERED: LORazepam 1 MG TABLET PO PRN (15:08)
[2020-12-15] MEDS: LORazepam 2 MG TABLET PO SCH ×2 (17:05→22:17)
[2020-12-15] MEDS: MELATONIN 5 MG TABLETS PO SCH (22:17)
[2020-12-15] MEDS: THIAMINE HCL 100 MG TABLET (FP) PO SCH (22:17)
[2020-12-16] MEDS ORDERED: chlordiazePOXIDE HCL 25 MG CAPSULE PO SCH (05:00)
[2020-12-16] MEDS: LORazepam 2 MG TABLET PO SCH ×4 (05:36→22:13)
[2020-12-16] MEDS: PRENATAL VITAMINS W/ FOLIC ACID TABLET (FP) PO SCH (10:26)
[2020-12-16] MEDS: THIAMINE HCL 100 MG TABLET (FP) PO SCH (22:14)
[2020-12-16] MEDS: MELATONIN 5 MG TABLETS PO SCH (22:14)
[2020-12-17] MEDS ORDERED: chlordiazePOXIDE HCL 10 MG CAPSULE PO PRN
[2020-12-17] MEDS ORDERED: chlordiazePOXIDE HCL 10 MG CAPSULE PO SCH (05:00)
[2020-12-17] MEDS: LORazepam 1 MG TABLET PO SCH ×4 (06:21→22:08)
[2020-12-17] MEDS: PRENATAL VITAMINS W/ FOLIC ACID TABLET (FP) PO SCH (10:39)
[2020-12-17] MEDS: THIAMINE HCL 100 MG TABLET (FP) PO SCH (22:08)
[2020-12-17] MEDS: MELATONIN 5 MG TABLETS PO SCH (22:08)
[2020-12-18] MEDS ORDERED: LORazepam 0.5 MG TABLET PO PRN
[2020-12-18] MEDS ORDERED: chlordiazePOXIDE HCL 10 MG CAPSULE PO SCH (05:00)
[2020-12-18] MEDS: LORazepam 0.5 MG TABLET PO SCH ×4 (06:22→22:23)
[2020-12-18] MEDS: PRENATAL VITAMINS W/ FOLIC ACID TABLET (FP) PO SCH (10:17)
[2020-12-18] MEDS: MELATONIN 5 MG TABLETS PO SCH (22:23)
[2020-12-18] MEDS: THIAMINE HCL 100 MG TABLET (FP) PO SCH (22:23)
[2020-12-19] MEDS ORDERED: LORazepam 0.5 MG TABLET PO ONE (05:00)
[2020-12-19] MEDS ORDERED: chlordiazePOXIDE HCL 10 MG CAPSULE PO ONE (05:00)
[2020-12-19 09:38] VITALS: PULSE 105; TEMP 96.9
[2020-12-19 09:39] VITALS: BP 127/78
== END 2020-12-19 09:22 | disposition home or self-care (01) | DRG 775 ==
LOC: YASAS 17:09 → Y6N 21:14
PROVIDERS: ADMIT Allergy & Immunology; ATTEND Allergy & Immunology
PROC: HZ2ZZZZ Detoxification Services for Substance Abuse Treatment (ICD-10-PCS; principal; 2020-12-14)
DX: F10.230 Alcohol dependence with withdrawal, uncomplicated (principal); F10.220 Alcohol dependence with intoxication, uncomplicated; F12.20 Cannabis dependence, uncomplicated; D72.819 Decreased white blood cell count, unspecified; R74.01 Elevation of levels of liver transaminase levels
CPT/HCPCS: 36415; 80053; 81025; 85027; 86780; 93005; 93010; C9803; Q0162; U0003

== ENCOUNTER 2021-01-27 11:23 | Inpatient (IN) | payer OTHER ==
[2021-01-27 11:49] VITALS: BMI 19.0
[2021-01-27] MEDS ORDERED: ACETAMINOPHEN 325 MG TABLET (FP) PO PRN ×2 (15:13)
[2021-01-27] MEDS ORDERED: MAGNESIUM HYDROX 2400MG/30ML ORAL SUSPENSION 30 ML CUP PO PRN (15:13)
[2021-01-27] MEDS ORDERED: IBUPROFEN 400 MG TABLET (FP) PO PRN (15:13)
[2021-01-27] MEDS ORDERED: ONDANSETRON *ODT* 4 MG TABLET SL PRN (15:13)
[2021-01-27] MEDS ORDERED: NICOTINE POLACRILEX 2 MG GUM BUC PRN (15:13)
[2021-01-27] MEDS ORDERED: MAGNESIUM CITRATE 300 ML BOTTLE PO PRN (15:13)
[2021-01-27] MEDS ORDERED: BISMUTH SUBSALICYLATE 524 MG/30 ML UD PO PRN (15:13)
[2021-01-27] MEDS ORDERED: chlordiazePOXIDE HCL 25 MG CAPSULE PO PRN (15:13)
[2021-01-27] MEDS ORDERED: METHOCARBAMOL 500 MG TABLET PO PRN (15:13)
[2021-01-27] MEDS ORDERED: MAG HYDROX/AL HYDROX/SIMETH 30 ML UNIT-DOSE CUP PO PRN (15:13)
[2021-01-27] MEDS ORDERED: MENTHOL/PHENOL 1 EACH UD MM PRN (15:13)
[2021-01-27] MEDS ORDERED: hydrOXYzine PAMOATE 25 MG CAPSULE (FP) PO PRN (15:49)
[2021-01-27] MEDS: chlordiazePOXIDE HCL 25 MG CAPSULE PO SCH ×2 (17:52→22:45)
[2021-01-27] MEDS ORDERED: hydrOXYzine PAMOATE 25 MG CAPSULE (FP) PO SCH (18:00)
[2021-01-27] MEDS: THIAMINE HCL 100 MG TABLET (FP) PO SCH (22:46)
[2021-01-27] MEDS: MELATONIN 5 MG TABLETS PO SCH (22:46)
[2021-01-28] MEDS: chlordiazePOXIDE HCL 25 MG CAPSULE PO SCH ×4 (05:26→22:31)
[2021-01-28 10:05] LABS: HEMATOCRIT 30.7 % (32.4-45.2); MCH 33.3 pg (25.7-33.7); MCHC 32.7 g/dl (32.0-36.0); MEAN PLT VOLUME 8.1 fl (7.5-11.1); PLATELET COUNT 237 K/MM3 (134-434); RBC 3.01 M/mm3 (3.60-5.2); RDW 12.9 % (11.6-15.6); WHITE BLOOD COUNT 2.8 K/mm3 (4.0-10.0)
[2021-01-28 10:26] LABS: POTASSIUM 3.6 mmol/L (3.5-5.1)
[2021-01-28 10:32] LABS: ALBUMIN 3.5 g/dl (3.4-5.0); CALCIUM 8.1 mg/dL (8.5-10.1)
[2021-01-28 10:33] LABS: BLOOD UREA NITROGEN 9.8 mg/dL (7-18)
[2021-01-28 10:36] LABS: BILIRUBIN,TOTAL 0.2 mg/dL (0.2-1); CREATININE 0.5 mg/dL (0.55-1.3); TOT PROT 7.4 g/dl (6.4-8.2)
[2021-01-28] MEDS: PRENATAL VITAMINS W/ FOLIC ACID TABLET (FP) PO SCH (10:40)
[2021-01-28] MEDS: MELATONIN 5 MG TABLETS PO SCH (22:31)
[2021-01-28] MEDS: THIAMINE HCL 100 MG TABLET (FP) PO SCH (22:31)
[2021-01-29] MEDS: chlordiazePOXIDE HCL 25 MG CAPSULE PO SCH ×3 (05:03→17:37)
[2021-01-29] MEDS: PRENATAL VITAMINS W/ FOLIC ACID TABLET (FP) PO SCH (10:36)
[2021-01-29 11:30] LABS: BASO % 1.2 % (0-2.0); EOS % 1.3 % (0-4.5); HEMATOCRIT 33.1 % (32.4-45.2); HEMOGLOBIN 11.3 GM/dL (10.7-15.3); LYMPH % 36.8 % (8-40); MCH 34.1 pg (25.7-33.7); MEAN CELL VOLUME 100.1 fl (80-96); MONO % 23.3 % (3.8-10.2); NEUT % 37.4 % (42.8-82.8); PLATELET COUNT 257 K/MM3 (134-434); RDW 12.6 % (11.6-15.6)
[2021-01-29 13:48] LABS: ANISOCYTOSIS 1+; MACROCYTOSIS 1+
[2021-01-29 18:13] VITALS: BP 94/65; PULSE 89; TEMP 96.9
[2021-01-30] MEDS ORDERED: chlordiazePOXIDE HCL 10 MG CAPSULE PO PRN
[2021-01-30] MEDS ORDERED: chlordiazePOXIDE HCL 10 MG CAPSULE PO SCH (05:00)
[2021-01-31] MEDS ORDERED: chlordiazePOXIDE HCL 10 MG CAPSULE PO SCH (05:00)
[2021-02-01] MEDS ORDERED: chlordiazePOXIDE HCL 10 MG CAPSULE PO ONE (05:00)
== END 2021-01-29 19:22 | disposition left against medical advice (07) | DRG 770 ==
LOC: YASAS 11:23 → Y3N 14:41
PROVIDERS: ADMIT Allergy & Immunology; ATTEND Allergy & Immunology
PROC: HZ2ZZZZ Detoxification Services for Substance Abuse Treatment (ICD-10-PCS; principal; 2021-01-27)
DX: F10.230 Alcohol dependence with withdrawal, uncomplicated (principal); F10.220 Alcohol dependence with intoxication, uncomplicated; F17.210 Nicotine dependence, cigarettes, uncomplicated; D72.818 Other decreased white blood cell count
CPT/HCPCS: 36415; 80053; 81025; 85025; 85027; 86780; C9803; U0003